=== PATIENT | male | born 1985 | race Caucasian/White ===

== ENCOUNTER 2017-01-03 21:41 | Emergency (ER) | payer OTHER | END 2017-01-03 22:40 | disposition home or self-care (01) | LOC: ER 21:41 | DX: M51.9 Unspecified thoracic, thoracolumbar and lumbosacral intervertebral disc disorder (principal); M25.552 Pain in left hip; G89.29 Other chronic pain; F17.210 Nicotine dependence, cigarettes, uncomplicated | CPT/HCPCS: 72100; 73502; 96372; 99283-25 ==